=== PATIENT | female | born 1975 | race Caucasian/White ===

== ENCOUNTER 2020-09-20 11:29 | Emergency (ER) | payer OTHER ==
[~2020-09-20] VITALS: Ht 165.1 cm; Wt 72.6 kg
== END 2020-09-20 14:15 | disposition home or self-care (01) ==
LOC: ED 11:29
DX: S63.502A Unspecified sprain of left wrist, initial encounter (principal); S00.03XA Contusion of scalp, initial encounter; S10.93XA Contusion of unspecified part of neck, initial encounter; S00.12XA Contusion of left eyelid and periocular area, initial encounter; Z88.0 Allergy status to penicillin; Z88.8 Allergy status to other drugs, medicaments and biological substances; Y04.2XXA Assault by strike against or bumped into by another person, initial encounter
CPT/HCPCS: 70450; 70486; 70498; 73110; 80048; 85025; 99284-25; Q9967